=== PATIENT | male | born 1940 | race Caucasian/White ===

== ENCOUNTER → 2016-05-16 | Outpatient (CLI) | payer MEDICARE, BC ==
[2016-05-16 08:18] LABS: BUN/CREATININE RATIO 19 (0-10)
== END ==
LOC: LAB 07:12
PROVIDERS: Internal Medicine Cardiovascular Disease
DX: R94.31 Abnormal electrocardiogram [ECG] [EKG] (principal)
CPT/HCPCS: 36415; 80048

== ENCOUNTER → 2020-05-31 | Outpatient (CLI) | payer MEDICARE | LOC: RAD 12:21 | DX: M25.561 Pain in right knee (principal); M25.562 Pain in left knee; M17.0 Bilateral primary osteoarthritis of knee | CPT/HCPCS: 73564 ==